=== PATIENT | female | born 1990 | race Caucasian/White ===

== ENCOUNTER 2024-01-12 15:43 | Emergency (ER) | payer BC ==
[~2024-01-12] VITALS: Ht 180.3 cm; Wt 91.8 kg
[~2024-01-12 15:43] MED LIST: MOTRIN 600600 MG/TAB PO; PRENATAL; PROCARDIA XL 3030 MG PO; ROXICODONE 55 MG/TAB PO
[2024-01-12 15:48] VITALS: TEMP 98
[2024-01-12 16:52] VITALS: BP 116/78; PULSE 92
== END 2024-01-12 16:52 | disposition home or self-care (01) ==
LOC: COL.ER 15:43
DX: O9A.211 Injury, poisoning and certain other consequences of external causes complicating pregnancy, first trimester (principal); S39.91XA Unspecified injury of abdomen, initial encounter; Z3A.14 14 weeks gestation of pregnancy; W50.0XXA Accidental hit or strike by another person, initial encounter; Y92.219 Unspecified school as the place of occurrence of the external cause